=== PATIENT | male | born 1950 | race Two or more races ===

== ENCOUNTER 2023-11-16 17:14 | Inpatient (IN) | payer MEDICARE, MEDICAID ==
[~2023-11-16] VITALS: Ht 185.4 cm; Wt 85.1 kg
[2023-11-16] MEDS: ALBUTEROL SULF 2.5 MG/0.5ML(0.5%) NEB SOLN ONE (17:22)
[2023-11-16] MEDS: methylPREDNISolone SOD SUCC 125 MG/2 ML VL IV ONE (17:30)
[2023-11-16] MEDS: IPRATROPIUM BROM 0.5 MG/2.5ML INH SOL HHN ONE (18:00)
[2023-11-16] MEDS: ALBUTEROL SULF 2.5 MG/0.5ML(0.5%) NEB SOLN HHN ONE (18:00)
[2023-11-16 18:01] LABS: Basophils # (auto) 0.1 10 ^3/uL (0-0.2); Basophils % (auto) 0.9 % (0.0-2.0); Eosinophils # (auto) 1.2 10 ^3/uL (0-0.8); Hematocrit 52.1 % (41.0-53.0); Hemoglobin 17.4 g/dL (13.5-17.5); Lymphocytes # (auto) 1.9 10 ^3/uL (0.4-5.4); Lymphocytes % (auto) 23.4 % (10.0-50.0); Mean Corpuscular Hemoglobin 32.9 pg (28.0-32.0); Mean Corpuscular Hgb Conc. 33.5 g/dL (32.0-36.0); Mean Corpuscular Volume 98.5 fL (80.0-100.0); Monocytes # (auto) 1.1 10 ^3/uL (0-1.3); Monocytes % (auto) 13.4 % (0.0-12.0); Neutrophils # (auto) 3.9 10 ^3/uL (1.6-8.6); Neutrophils % (auto) 47.2 % (37.0-80.0); Nucleated Red Blood Cells % 0.1 %; Platelet Count (auto) 231 10^3/uL (140-450); Red Blood Cells 5.29 10^6/uL (4.5-5.90); Red Cell Distribution Width 13.7 % (11.8-14.3); White Blood Cell 8.2 10^3/uL (4.4-10.8)
[2023-11-16 18:03] LABS: Eosinophils % (auto) 15.1 % (0.0-7.0)
[2023-11-16 18:29] LABS: Alanine Aminotransferase 26 U/L (7-40); Albumin 4.5 g/dL (3.2-4.8); Alkaline Phosphatase 65 U/L (46-116); Anion Gap 7 (5-15); Aspartate Aminotransferase 26 U/L (13-40); BUN/Creatinine Ratio 7.1 (10.0-20.0); Bilirubin, Total 1.1 mg/dL (0.2-1.0); Blood Urea Nitrogen 6 mg/dL (9-23); Calcium 10.1 mg/dL (8.7-10.4); Carbon Dioxide 28 mmol/L (20-31); Chloride 103 mmol/L (98-107); Glucose 98 mg/dL (74-106); Potassium 4.1 mmol/L (3.5-5.1); Sodium 138 mmol/L (136-145)
[2023-11-16 19:07] VITALS: PULSE 118; RESP 22; O2SAT 95
[2023-11-16 20:00] VITALS: PULSE 115; RESP 18; O2SAT 95
[2023-11-16 20:05] VITALS: O2SAT 96
[2023-11-16] MEDS ORDERED: NITROGLYCERIN 0.4 MG SL TAB SL PRN (20:30)
[2023-11-16] MEDS ORDERED: ALBUTEROL SULF 2.5 MG/0.5ML(0.5%) NEB SOLN NEB PRN (20:30)
[2023-11-16] MEDS ORDERED: MORPHINE SULFATE INJ 2 MG/ml SYRG IV PRN (20:30)
[2023-11-16] MEDS ORDERED: IPRATROPIUM BROM 0.5 MG/2.5ML INH SOL NEB PRN (20:30)
[2023-11-16] MEDS ORDERED: ONDANSETRON HCL 4 MG/2 ML VIAL IV PRN (20:30)
[2023-11-16] MEDS ORDERED: ACETAMINOPHEN 325 MG TAB PO PRN (20:30)
[2023-11-16 21:00] VITALS: BP 145/102; PULSE 114; RESP 26; TEMP 97.9; O2SAT 95
[2023-11-16] MEDS: methylPREDNISolone SOD SUCC 40 MG/ML VL IV SCH (22:22)
[2023-11-16] MEDS: IOHEXOL 350 MG/ML 100ML IJ ONE (22:22)
[2023-11-16] MEDS: METOPROLOL TARTRATE 25 MG TAB PO ONE (23:00)
[2023-11-17] VITALS (11 sets, daily range): BP systolic 109–155; BP diastolic 59–100; PULSE 83–111; RESP 16–20; TEMP 97.3–97.6; O2SAT 92–98
[2023-11-17 03:39] LABS: Basophils # (auto) 0 10 ^3/uL (0-0.2); Basophils % (auto) 0.2 % (0.0-2.0); Eosinophils # (auto) 0 10 ^3/uL (0-0.8); Eosinophils % (auto) 0.3 % (0.0-7.0); Hematocrit 46.7 % (41.0-53.0); Hemoglobin 15.8 g/dL (13.5-17.5); Lymphocytes # (auto) 0.5 10 ^3/uL (0.4-5.4); Lymphocytes % (auto) 8.8 % (10.0-50.0); Mean Corpuscular Hemoglobin 33.2 pg (28.0-32.0); Mean Corpuscular Volume 97.8 fL (80.0-100.0); Monocytes # (auto) 0.1 10 ^3/uL (0-1.3); Monocytes % (auto) 1.9 % (0.0-12.0); Neutrophils # (auto) 4.9 10 ^3/uL (1.6-8.6); Neutrophils % (auto) 88.8 % (37.0-80.0); Nucleated Red Blood Cells % 0.1 %; Platelet Count (auto) 209 10^3/uL (140-450); Red Blood Cells 4.77 10^6/uL (4.5-5.90); Red Cell Distribution Width 13.6 % (11.8-14.3); White Blood Cell 5.5 10^3/uL (4.4-10.8)
[2023-11-17 03:45] LABS: Chloride 103 mmol/L (98-107); Potassium 4.1 mmol/L (3.5-5.1); Sodium 138 mmol/L (136-145)
[2023-11-17 03:46] LABS: Anion Gap 8 (5-15); Calcium 10.2 mg/dL (8.7-10.4); Carbon Dioxide 27 mmol/L (20-31)
[2023-11-17 03:51] LABS: BUN/Creatinine Ratio 9.5 (10.0-20.0); Blood Urea Nitrogen 10 mg/dL (9-23)
[2023-11-17 03:53] LABS: Glucose 297 mg/dL (74-106)
[2023-11-17] MEDS: ENOXAPARIN SOD 40 MG/0.4 ML SYRINGE SC SCH (10:48)
[2023-11-17] MEDS: ASPirin 81 mg TAB PO SCH (10:48)
[2023-11-17] MEDS: METOPROLOL TARTRATE 25 MG TAB PO SCH (10:50)
[2023-11-17] MEDS: amLODIPine BESYLATE 5 MG TAB PO SCH (10:51)
[2023-11-17] MEDS ORDERED: ALPRAZolam 0.25 MG TAB PO PRN (13:00)
[2023-11-17] MEDS ORDERED: ALBUTEROL SULF 2.5 MG/0.5ML(0.5%) NEB SOLN NEB PRN (15:15)
[2023-11-17] MEDS ORDERED: IPRATROPIUM BROM 0.5 MG/2.5ML INH SOL NEB PRN (15:15)
[2023-11-17] MEDS: IPRATROPIUM BROM 0.5 MG/2.5ML INH SOL ONE (15:17)
[2023-11-17] MEDS: ALBUTEROL SULF 2.5 MG/0.5ML(0.5%) NEB SOLN ONE (15:17)
[2023-11-17] MEDS ORDERED: AMLO1TAB22 PO (18:20)
[2023-11-17] MEDS ORDERED: ALBUAER3 IN (18:20)
[2023-11-17] MEDS ORDERED: [UNRECOGNIZED DRUG - CODE] XX (18:22)
[2023-11-17] MEDS ORDERED: FLUT500M2 INH (18:24)
[2023-11-17] MEDS ORDERED: FURO20TA3 PO (18:25)
[2023-11-17] MEDS ORDERED: GABA-1250 PO (18:26)
[2023-11-17] MEDS ORDERED: UMEC1AER IN (18:28)
[2023-11-17] MEDS ORDERED: MECL-90 PO (18:30)
[2023-11-17] MEDS ORDERED: MELO15TA29 PO (18:32)
[2023-11-17] MEDS: IPRATROPIUM BROM 0.5 MG/2.5ML INH SOL NEB SCH (18:51)
[2023-11-17] MEDS: BUDESONIDE (INHALATION) 0.5 MG/2 ML NEB NEB SCH (18:51)
[2023-11-17] MEDS: ALBUTEROL SULF 2.5 MG/0.5ML(0.5%) NEB SOLN NEB SCH (18:51)
[2023-11-17] MEDS: ATORVASTATIN 20 MG TAB PO SCH (22:22)
[2023-11-18] VITALS (12 sets, daily range): BP systolic 113–132; BP diastolic 63–85; PULSE 12–86; RESP 16–20; TEMP 36.5; O2SAT 94–99
[2023-11-18] MEDS: amLODIPine BESYLATE 5 MG TAB PO SCH (11:43)
[2023-11-18] MEDS ORDERED: ALBU0.084 NEB (17:24)
[2023-11-18] MEDS ORDERED: ALBUAER3 IN (17:24)
[2023-11-18] MEDS ORDERED: UMEC1AER IN (17:24)
[2023-11-18] MEDS ORDERED: PRED20TA2 PO (17:24)
== END 2023-11-18 18:53 | disposition home or self-care (01) | DRG 140 ==
LOC: EDBD 17:14 → ER 17:20 → TELE 20:36 → TELE-WESTW 11-17 09:49
PROVIDERS: ADMIT Nurse Practitioner; ATTEND Nurse Practitioner Acute Care
DX: J44.1 Chronic obstructive pulmonary disease with (acute) exacerbation (principal); J96.21 Acute and chronic respiratory failure with hypoxia; I50.9 Heart failure, unspecified; I11.0 Hypertensive heart disease with heart failure; I25.10 Atherosclerotic heart disease of native coronary artery without angina pectoris; Z83.3 Family history of diabetes mellitus; Z91.148 Patient's other noncompliance with medication regimen for other reason
CPT/HCPCS: 36415; 71045; 71275; 80048; 80053; 83036; 83615; 83880; 84443; 84484; 85025; 85379; 93306; 94640; 94644; 99291; G0378

== ENCOUNTER → 2024-03-30 | Outpatient (CLI) | payer MEDICARE, MEDICAID ==
[~2024-03-30] MED LIST: ALBU0.084 NEB; ALBUAER3 IN; AMLO1TAB22 PO; FLUT500M2 INH; FURO20TA3 PO; GABA-1250 PO; MECL-90 PO; MELO15TA29 PO; PRED20TA2 PO; UMEC1AER IN; [UNRECOGNIZED DRUG - CODE] XX
[2024-03-30 11:10] LABS: Urine Bacteria None Seen /hpf (None Seen)
[2024-03-30 11:18] LABS: Hematocrit 48.9 % (41.0-53.0); Hemoglobin 16.3 g/dL (13.5-17.5); Mean Corpuscular Hemoglobin 32.5 pg (28.0-32.0); Mean Corpuscular Hgb Conc. 33.4 g/dL (32.0-36.0); Mean Corpuscular Volume 97.4 fL (80.0-100.0); Platelet Count (auto) 273 10^3/uL (140-450); Red Blood Cells 5.03 10^6/uL (4.5-5.90); Red Cell Distribution Width 13.8 % (11.8-14.3); White Blood Cell 9.1 10^3/uL (4.4-10.8)
[2024-03-30 11:28] LABS: Band Neutrophils % (manual) 0; Basophils % (manual) 0 (0.0-2.0); Blast Cells 0; Metamyelocytes % 0; Myelocytes % 0; Promyelocytes % 0; Reactive Lymphocytes 0
[2024-03-30 12:09] LABS: Urine Blood Negative /uL (Negative); Urine Clarity Clear (Clear); Urine Color Light-Yellow (Yellow); Urine Protein, UAD Negative (Negative); Urine Squamous Epithelial Cell FEW /hpf (<5); Urine Urobilinogen Normal (Negative); Urine WBC 1 /HPF (0-3)
[2024-03-30 12:27] LABS: Eosinophils % (manual) 20 (0-7); Lymphocytes % (manual) 32 (10.0-50.0); Monocytes % (manual) 4 (0-12); Platelet Estimate Adequate
[2024-03-30 13:50] LABS: Alanine Aminotransferase 22 U/L (7-40); Alkaline Phosphatase 60 U/L (46-116); Aspartate Aminotransferase 27 U/L (13-40); Carbon Dioxide 28 mmol/L (20-31); Chloride 101 mmol/L (98-107); Glucose 105 mg/dL (74-106); Triglycerides 64 mg/dL (< 150)
[2024-03-30 13:51] LABS: Anion Gap 9 (5-15); Cholesterol 147 mg/dL (< 200); HDL Cholesterol 46 mg/dL (40-59); LDL Cholesterol 90 mg/dL (< 100); Potassium 3.9 mmol/L (3.5-5.1); Sodium 138 mmol/L (136-145)
[2024-03-30 13:52] LABS: Bilirubin, Total 1.1 mg/dL (0.2-1.0)
[2024-03-30 13:56] LABS: Albumin 4.8 g/dL (3.2-4.8); BUN/Creatinine Ratio 6.3 (10.0-20.0); Blood Urea Nitrogen < 5 mg/dL (9-23); Calcium 10.5 mg/dL (8.7-10.4); Total Protein 8.2 g/dL (5.7-8.2)
== END | disposition home or self-care (01) ==
LOC: LAB 10:47
PROVIDERS: ATTEND Internal Medicine
DX: I11.0 Hypertensive heart disease with heart failure (principal); I50.32 Chronic diastolic (congestive) heart failure; M19.90 Unspecified osteoarthritis, unspecified site; R00.0 Tachycardia, unspecified; R06.03 Acute respiratory distress; R91.1 Solitary pulmonary nodule; R17 Unspecified jaundice; Z79.899 Other long term (current) drug therapy
CPT/HCPCS: 36415; 80053; 80061; 81001; 83036; 84439; 84443; 85007; 85027